=== PATIENT | female | born 1975 | race Caucasian/White ===

== ENCOUNTER 2020-06-29 15:57 | Emergency (ER) | payer OTHER, SELFPAY ==
--- NOTE | ~2020-06-29 | CT_ITS ---
EXAMINATION: CT LE RT wo con DATE: 06/29/2020 17:40 INDICATION: Right ankle injury with joint effusion. TECHNIQUE: High resolution computed tomography (CT) of the right ankle was performed without intraven ous contrast. Additional sagittal and coronal reconstructions were performed. Automated exposure cont rol and iterative reconstruction technique were employed. The dose-length product was 382.14 mGy-cm. COMPARISON: Right ankle radiographs dated 06/29/2020 FINDINGS: Bone alignment is normal. No fracture. Small osteophyte at the fibular side of the anterior inferior tibiofibular ligament likely sequela of old trauma. Also likely sequela of old trauma is tiny focus o f calcification along the deep deltoid ligament. Small enthesopathic ossicle at the distal insertion of the Achilles tendon. Mild osteoarthritis at the first metatarsophalangeal joint. Joint spaces are otherwise normal.. Small bone island at the navicula. Moderate-sized right ankle joint effusion. IMPRESSION: 1. Moderate-sized right ankle joint effusion. No acute osseous abnormality. Reviewed, dictated and finalized at location . TATION INSPECTOR
--- NOTE | ~2020-06-29 | XR_ITS ---
EXAMINATION: XR ankle RT min 3V DATE: 06/29/2020 16:29 INDICATION: Lateral right ankle pain post fall TECHNIQUE: Anteroposterior, oblique, mortise, and lateral views of the right ankle were obtained. COMPARISON: None. FINDINGS: Alignment is normal. No fracture. Joint spaces are well maintained. Large right ankle joint effusion with prominent increased density anterior to the tibiotalar joint. Mild soft tissue swelling about t he lateral malleolus. Small Achilles calcaneal spur. IMPRESSION: 1. Large right ankle joint effusion. No acute osseous abnormality. Reviewed, dictated and finalized at location H. L AND PINION INSPECTOR
[2020-06-29 16:15] VITALS: BP 147/107; PULSE 106; RESP 20; TEMP 36.8; O2SAT 100
--- NOTE | 2020-06-29 17:37 | PC.NURSE ---
patient to CT via wheelchair.
[2020-06-29] MEDS: HYDROcodone/acetaminophen (*CRX) 5-325 MG TABLET 1 TAB PO (17:44)
--- NOTE | 2020-06-29 17:45 | PC.NURSE ---
patient back from CT. pain med given as ordered. apple juice given per patient request. mother in room. patient wants to stay sitting in wheelchair for comfort.
--- NOTE | 2020-06-29 17:52 | ED.LOWEXIN ---
HPI - Extremity Injury (Lower) General Chief Complaint: Extremity Injury, Lower Stated Complaint: right ankle pain, fall last night Time Seen by Provider: 06/29/20 16:18 Source: patient Mode of arrival: wheelchair Limitations: no limitations History of Present Illness HPI Narrative: This is a 45 year old female that presents to the ER for right ankle pain after an injury last night. Reports she was walking up the steps and slipped and rolled the ankle and hit it on the step. Reports since she has had swelling and pain in the ankle. Denies other injuries, decreased ROM or numbness. Related Data Home Medications Medication Instructions Recorded Confirmed atomoxetine PO 06/29/20 hydrochlorothiazide 06/29/20 pantoprazole PO 06/29/20 venlafaxine mg PO 06/29/20 Allergies Allergy/AdvReac Type Severity Reaction Status Date / Time cefuroxime Allergy Unknown Hives Verified 06/29/20 16:42 Penicillins Allergy Unknown Hives Verified 06/29/20 16:42 NSAIDS (Non-Steroidal AdvReac Other Verified 06/29/20 16:42 Anti-Inflamma AMOXICILLIN TRIHYDRATE Allergy Intermediate RASH Uncoded 06/29/20 16:42 POTASSIUM CLAVULANATE Allergy Intermediate RASH Uncoded 06/29/20 16:42 Review of Systems Review of Systems: Narrative: CONSTITUTIONAL: Denies fever MUSCULOSKELETAL: Reports joint pain, and myalgia. NEUROLOGIC: Denies numbness All systems reviewed & are unremarkable except as noted in HPI and below PMFSH Past Medical History Medical History (Updated 06/29/20 @ 18:12 by Jenn Bernard PA-C) History of gastroesophageal reflux (GERD) Family History Family History (Updated 12/01/18 @ 15:06 by DOCTOR UNKNOWN) Mother Hypertension Family history of thyroid disease Diabetes mellitus Family history of elevated blood lipids Father Hypertension Diabetes mellitus Depression Family history of bipolar disorder Family history of liver disease Family history of coronary artery disease Social History Social History Smoking status: Never smoker Alcohol intake: never Exam Narrative: Exam Narrative: GENERAL: Well-appearing, well-nourished, and in no acute distress. HEAD: Normocephalic, atraumatic. EYES: EOMI. EXTREMITIES: Normal range of motion. Moderate edema about the right ankle. Normal DP pulses. Normal sensation SKIN: Warm, dry, no rash. NEURO: No focal deficits. Alert and oriented x3. PSYCH: Normal mood and affect Course Vital Signs Vital signs: Vital Signs Temperature 98.3 F 06/29/20 16:15 Pulse Rate 106 H 06/29/20 16:15 Respiratory Rate 20 06/29/20 16:15 Blood Pressure 147/107 H 06/29/20 16:15 Pulse Oximetry 100 06/29/20 16:15 Temperature 98.3 F 06/29/20 16:15 Pulse Rate 106 H 06/29/20 16:15 Respiratory Rate 20 06/29/20 16:15 Blood Pressure 147/107 H 06/29/20 16:15 Pulse Oximetry 100 06/29/20 16:15 MDM - Extremity Injury (Lower) MDM Narrative Medical decision making narrative: Patient presents to the ER for right ankle pain after an injury yesterday. Right ankle x-ray is without acute findings. Did show a large joint effusion so CT was obtained to r/o occult fracture. CT scan was also without acute osseous abnormalities. Patient placed in Roni wrap and given crutches. She is to follow-up with primary care doctor. She was given warnings to return to the ER Imaging Data Radiologist's impression: ITS Impressions Ankle X-Ray 06/29/20 16:36 IMPRESSION: 1. Large right ankle joint effusion. No acute osseous abnormality. Lower Extremity CT 06/29/20 17:48 IMPRESSION: 1. Moderate-sized right ankle joint effusion. No acute osseous abnormality. Critical Care Time Critical Care Time Critical Care Time: No Discharge Plan Discharge Clinical Impression: Right ankle sprain Qualifiers: Encounter type: initial encounter Involved ligament of ankle: unspecified ligament Qualified Code(s): S93.401A - Sprain of unspecified ligament of right ank
--- NOTE | 2020-06-29 17:55 | PC.NURSE ---
CT results. has effusion but no fracture.
[2020-06-29] MEDS: ONDANSETRON HCL ODT 4 MG TABLET PO (18:30)
[2020-06-29 18:46] VITALS: BP 158/80; PULSE 72; O2SAT 100
== END 2020-06-29 18:48 | disposition home or self-care (01) ==
PROVIDERS: Emergency Provider Emergency Medicine; PCP Internal Medicine
DX: S93.401A Sprain of unspecified ligament of right ankle, initial encounter (principal); K21.9 Gastro-esophageal reflux disease without esophagitis; X50.1XXA Overexertion from prolonged static or awkward postures, initial encounter
CPT/HCPCS: 73610; 73700; 99284; A9270

== ENCOUNTER 2021-09-25 11:38 | Outpatient (CLI) | payer OTHER, SELFPAY ==
--- NOTE | ~2021-09-25 | XR_ITS ---
EXAMINATION: XR elbow RT min 3V DATE: 09/25/2021 12:16 INDICATION: Right elbow injury post fall TECHNIQUE: Anteroposterior, two oblique and lateral views of the right elbow were obtained. COMPARISON: None. FINDINGS: Alignment is normal. No fracture or joint effusion. Joint spaces are normal. Soft tissues are unremar kable. IMPRESSION: 1. Negative right elbow radiographs. Reviewed, dictated and finalized at location A. IGHT TOOTH GEAR GENERATOR OPERATOR
== END 2021-09-25 11:39 | disposition home or self-care (01) ==
LOC: CHSIMG 11:40
PROVIDERS: PCP Internal Medicine; Visit Provider Internal Medicine
DX: S59.901A Unspecified injury of right elbow, initial encounter (principal)
CPT/HCPCS: 73080

== ENCOUNTER 2024-07-17 00:17 | Day surgery (SDC) | payer BC, SELFPAY ==
[2024-07-04 12:22] VITALS: BMI 36.3
[2024-07-17 07:21] VITALS: BP 141/81; PULSE 94; RESP 18; TEMP 35.8; O2SAT 100
[2024-07-17] MEDS: LACTATED RINGERS 1,000 ML 150 ML IV CONT (07:24)
--- NOTE | 2024-07-17 07:55 | WPDANESEPPF ---
Anes - Initial Pre Proc Eval Procedure: Operation Date: 07/17/24 08:00 Proposed Procedures p Screening Colonoscopy - Lm Diop DO Date/Time: 07/17/24 07:55 Surgeon: Lm Diop DO Pre Op Diagnosis: screening for malignant neoplasm of colon Patient Data Age: 49 Gender: F Height: 1.52 m Weight: 82.6 kg Last Vital Signs Temp 35.8 C L 07/17/24 07:21 Pulse 94 07/17/24 07:21 Resp 18 07/17/24 07:21 BP 141/81 H 07/17/24 07:21 Pulse Ox 100 07/17/24 07:21 O2 Del Method Room Air 07/17/24 07:21 Allergies Allergy/AdvReac Type Severity Reaction Status Date / Time amoxicillin (From Augmentin) Allergy Intermediate Rash Verified 07/17/24 07:22 clavulanic acid (From Allergy Intermediate Rash Verified 07/17/24 07:22 Augmentin) cefuroxime Allergy Unknown Hives Verified 07/17/24 07:17 Penicillins Allergy Unknown Hives Verified 07/17/24 07:17 NSAIDS (Non-Steroidal AdvReac Other Verified 07/17/24 07:17 Anti-Inflamma Home Medications ?Medication ?Instructions ?Recorded ?Confirmed ?Type potassium citrate 5 mEq (540 mg) 75 mg PO DAILY 04/23/21 07/17/24 History tablet,extended release losartan 50 mg-hydrochlorothiazide 0.5 tablet PO DAILY 07/04/24 07/17/24 History 12.5 mg tablet pantoprazole 40 mg tablet,delayed 40 mg PO DAILY 07/04/24 07/17/24 History release phentermine 37.5 mg capsule 37.5 mg PO DAILY 07/04/24 07/17/24 History Patient hx anesthesia problems: none Family hx anesthesia problems: none Results Review: All pre-operative results and documents have been reviewed as part of the pre-operative evaluation. [facility] Past Medical History Medical History History of 1989 History of vaginal delivery 04/06/96 Male 6lbs 7oz Kidney disease Hypertension Headache Acid reflux Diabetes Anxiety Seasonal allergies History of gastroesophageal reflux (GERD) Surgical History Surgical History History of cholecystectomy History of tubal ligation History of endometrial ablation History of section 10/12/98 6lb 7.5oz Male Family History Family History Mother Hypertension Family history of thyroid disease Diabetes mellitus Family history of elevated blood lipids Father Hypertension Diabetes mellitus Depression Family history of bipolar disorder Family history of liver disease Family history of coronary artery disease Grandparent Cervical cancer Social History Social History Smoking status: Never smoker Alcohol intake: current Drinks per week: 1 Substance use: never Substance use type: does not use Living arrangements: alone Anes - Eval Final PreProcedure Day of Procedure 07/17/24 07:55 Patient weight: obese Heart: regular rate and rhythm Lungs: clear to auscultation Airway: Mallampati scale class II Neurological: alert and oriented Last oral intake: >/= 8 hours ASA classification: III Emergent: no Anesthetic plan: proceed Anesthesia type and monitoring: general GIVS and standard monitoring Results Review: All pre-operative results and documents have been reviewed as part of the pre-operative evaluation. Informed Consent: The patient's anesthetic plan and its attendant risks and benefits were discussed with the patient/family/POA. Questions were solicited and answers provided to the satisfaction of the patient/family/POA.
--- NOTE | 2024-07-17 08:03 | P.HP_ITS ---
H&P: HPI History of Present Illness Date/Time: 07/17/24 08:03 Chief Complaint: screening for colorectal cancer Narrative: this is a 49-year-old woman who presents for colonoscopy. She has never had a colonoscopy before. She denies any family history of colon cancer. She denies hematochezia or melena Review of Systems Review of Systems: All systems reviewed & are unremarkable except as noted in HPI and below Constitutional: Constitutional: Denies chills, Denies fever(s), Denies headache(s) and Denies weight loss Eyes: Eyes: Denies change in vision ENT: Denies dizziness, Denies headache(s), Denies neck mass and Denies throat swelling Cardiovascular: Cardiovascular: Denies chest pain, Denies lightheadedness and Denies dyspnea Respiratory: Respiratory: Denies cough, Denies dyspnea and Denies wheezing Gastrointestinal: Gastrointestinal: Denies abdominal pain, Denies change in bowel habits, Denies nausea and Denies vomiting Genitourinary: Genitourinary: Denies hematuria and Denies dysuria Musculoskeletal: Musculoskeletal: Reports as per HPI Integumentary/Breasts: Skin/Breast: Reports as per HPI Neurologic: Denies dizziness and Denies headache(s) Allergic/Immunologic: Allergic/Immunologic: Denies throat swelling and Denies wheezing [facility] Past Medical History Medical History History of 1988 History of vaginal delivery 04/06/96 Male 6lbs 7oz Kidney disease Hypertension Headache Acid reflux Diabetes Anxiety Seasonal allergies History of gastroesophageal reflux (GERD) Surgical History Surgical History History of cholecystectomy History of tubal ligation History of endometrial ablation History of section 10/12/98 6lb 7.5oz Male Family History Family History Mother Hypertension Family history of thyroid disease Diabetes mellitus Family history of elevated blood lipids Father Hypertension Diabetes mellitus Depression Family history of bipolar disorder Family history of liver disease Family history of coronary artery disease Grandparent Cervical cancer Social History Social History Smoking status: Never smoker Alcohol intake: current Drinks per week: 1 Substance use: never Substance use type: does not use Living arrangements: alone Meds Home Medications and Allergies Home Medications ?Medication ?Instructions ?Recorded ?Confirmed ?Type potassium citrate 5 mEq (540 mg) 75 mg PO DAILY 04/23/21 07/17/24 History tablet,extended release losartan 50 mg-hydrochlorothiazide 0.5 tablet PO DAILY 07/04/24 07/17/24 History 12.5 mg tablet pantoprazole 40 mg tablet,delayed 40 mg PO DAILY 07/04/24 07/17/24 History release phentermine 37.5 mg capsule 37.5 mg PO DAILY 07/04/24 07/17/24 History Allergies Allergy/AdvReac Type Severity Reaction Status Date / Time amoxicillin (From Augmentin) Allergy Intermediate Rash Verified 07/17/24 07:22 clavulanic acid (From Allergy Intermediate Rash Verified 07/17/24 07:22 Augmentin) cefuroxime Allergy Unknown Hives Verified 07/17/24 07:17 Penicillins Allergy Unknown Hives Verified 07/17/24 07:17 NSAIDS (Non-Steroidal AdvReac Other Verified 07/17/24 07:17 Anti-Inflamma Vital Signs Vital Signs - 24 hr 07/17/24 07:21 Temperature 96.4 F L Pulse Rate 94 Respiratory Rate 18 Blood Pressure 141/81 H Pulse Oximetry 100 Oxygen Delivery Room Air Exam Const: General: no acute distress and alert Orientation/consciousness: patient oriented x3 HENMT: Head: normocephalic and atraumatic Ears: hearing grossly normal bilaterally Face/Nose/Sinus: Normal nares present Mouth: Yes Normal oral and palatal mucosa present Eyes: Periorbital: periorbital findings normal Sclera: sclerae normal EOM: EOMs intact bilaterally Neck: Neck: normal visual inspection, no lymphadenopathy and trachea midline Chest: Chest palpation & inspection: normal inspection of the chest Resp: Effort & Inspection: normal respiratory effort Auscultation: clear to auscultation bilaterally Cardio: Jugular venous distension: no JVD Rate: regular rate Rhythm: regular rhythm Heart sounds: S1 normal heart sound present and S2 normal heart sound present Peripheral pulses: Peripheral pulses 2+ throughout GI: Inspection: normal to inspection GI Palp: Yes Soft to palpation, No Tenderness to palpation present (GI), No Guarding due to palpation present (GI) and No Rebound tenderness present Percussion: Yes normal to percussion Auscultation: normal bowel sounds : General: Yes no CVA tenderness Back/Spine/Pelvis: Back: no CVA tenderness Neuro: General: patient oriented x3, no focal motor deficits and CN's II-XI intact bilaterally Cognition (Neuro): normal cognition Speech: normal speech Motor exam (neuro): 5/5 motor strength present throughout Extrem: General: capillary refill normal and no clubbing, cyanosis or edema Assessment and Plan Assessment and plan (1) Screening for colorectal cancer: Code(s): Z12.11 - Encounter for screening for malignant neoplasm of colon; Z12.12 - Encounter for screening for malignant neoplasm of rectum Status: Acute Assessment and Plan: I have recommended colonoscopy. I have discussed the procedure, risks, benefits, and alternatives. Questions were answered. Patient is agreeable to proceed.
[2024-07-17 08:40] VITALS: BP 116/73; PULSE 79; RESP 19; O2SAT 97
[2024-07-17 08:50] VITALS: BP 139/95; PULSE 74; RESP 16; O2SAT 100
[2024-07-17 09:00] VITALS: BP 139/99; PULSE 76; RESP 20; O2SAT 100
[2024-07-17 09:37] LABS: BEDSIDEPREGUCG Negative (Negative)
== END 2024-07-17 09:09 | disposition home or self-care (01) ==
PROVIDERS: PCP Internal Medicine; Visit Provider Surgery
PROC: 0DJD8ZZ Inspection of Lower Intestinal Tract, Via Natural or Artificial Opening Endoscopic (ICD-10-PCS; CPT 45378; principal; 2024-07-17 08:00)
DX: Z12.11 Encounter for screening for malignant neoplasm of colon (principal); D12.5 Benign neoplasm of sigmoid colon; E11.9 Type 2 diabetes mellitus without complications; K21.9 Gastro-esophageal reflux disease without esophagitis; N28.9 Disorder of kidney and ureter, unspecified; I10 Essential (primary) hypertension; F41.9 Anxiety disorder, unspecified; E66.9 Obesity, unspecified; Z68.35 Body mass index [BMI] 35.0-35.9, adult; Z98.890 Other specified postprocedural states; Z90.49 Acquired absence of other specified parts of digestive tract; Z98.51 Tubal ligation status; Z98.891 History of uterine scar from previous surgery; Z80.49 Family history of malignant neoplasm of other genital organs; Z82.49 Family history of ischemic heart disease and other diseases of the circulatory system
CPT/HCPCS: 45385; 88305; J2003; J2704; J7120

== ENCOUNTER 2025-04-02 13:41 | Outpatient (CLI) | payer BC, SELFPAY ==
--- NOTE | ~2025-04-02 | MM_ITS ---
EXAMINATION: MM screening maxim BI w naun HISTORY: Screening TECHNIQUE: Craniocaudal and mediolateral oblique 3-D tomosynthesis images were obtained and synthetic 2-D images were generated. CAD analysis was submitted and interpreted. COMPARISON: Comparison to multiple prior studies sequentially, with oldest reviewed study dated 06/09/2013. BREAST PARENCHYMAL COMPOSITION: There are scattered areas of fibroglandular density. FINDINGS: There is no evidence of suspicious mass, calcification, or architectural distortion to suggest malignancy in either breast. IMPRESSION: 1. No mammographic evidence of malignancy. 2. Recommend routine screening mammography in one year. BI-RADS Category 1: Negative Reviewed, dictated and finalized at location B.
--- OUTSIDE RECORDS SUMMARY | 2025-04-02 13:47 | XMS_ITS | Clinical Summary ---
Author Organization [facility] Address [address] [place] [address] Care Team Providers Care Drawing Checker Name Role Phone King Piedra MD Primary Care Provider + [phone] Allergies Active Allergy Reactions Criticality Noted Date Comments Penicillin Swelling,Rash Medium 09/12/2024 Medications phentermine 37.5 mg capsule 0 05/06/2018 Active potassium citrate ER (UROCIT-K) 10 mEq (1,080 mg) CR tablet Take 1 tablet by mouth twice daily 60 tablet 02/19/2020 Active losartan-hydroCH LOROthiazide (HYZAAR) 50-12.5 mg per tablet Take 1 tablet by mouth daily 07/18/[address] (PROTONIX) 40 mg EC tablet Take 1 tablet (40 mg total) by mouth daily 09/02/2024 Active Active Problems Problem Noted Date Diagnosed Date High triglycerides 09/12/2024 Overview (09/12/2024): 06/2024- Assessment & Plan (09/12/2024 3:51 PM SECURITIES SUPERVISOR): 08/2023- . Diet and exercise discussed. To follow with pcp for this and her elevated hgbA1c and lft. 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 S/p ckc. Normal since Labs with PCP [place]:2021 Colonoscopy:scheduled 07/2024 BMD: Gardasil:she is not sure Assessment & Plan (06/25/2024 2:48 PM SECURITIES SUPERVISOR): Pap done. RTO 12m. I will send the results to the portal. If she has not heard in a week, to call the office. Menopausal symptoms 06/25/2024 Assessment & Plan (09/12/2024 3:53 PM SECURITIES SUPERVISOR): Labs reviewed To lew pierre. We discussed HRT vs. Other options. Her mom took herbs. She doesn't want hrt We discussed what herbs to take. She took the effexor in the past for anxiety during her divorce. This may be a good option for her in the future if the herbs dont work. Assessment & Plan (06/25/2024 2:50 PM SECURITIES SUPERVISOR): To menopausal labs. 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 Hypertension 11/30/2010 Surgical History Surgery Date Site/Laterality Comments ENDOMETRIAL ABLATION W/ NOVASURE TUBAL LIGATION CHOLECYSTECTOMY SECTION Family History Medical History Relation Name Comments Diabetes Father Family history of diabetes mellitus - (Added by TW Conv) Hypertension Father Family history of hypertension - (Added by TW Conv) Hypertension Mother Family history of hypertension - (Added by TW Conv) Cancer Neg Hx no colon, breas t or home comfort advisor cancer cmt 06/25/24 Relation Name Status Comments Father Mother Social History Tobacco Use Types Packs/Day Years Used Date Smoking Tobacco: Never Smokeless Tobacco: Never Tobacco Cessation:Counseling Given: Not Answered Humiliation, Afraid, Rape, and Kick questionnair e Answer Date Recorded Within the last year, have y ou been afraid of your partner or ex-partner? No 06/25/2024 Within the last year, have y ou been humiliated or emotionally abused in other ways by your partner or ex-partner? No Within the last year, have y ou been kicked, hit, slapped, or otherwise physically hurt by your partner or ex-partner? No 06/25/2024 Within the last year, have y ou been raped or forced to have any kind of sexual activity by your partner or ex-partner? No 06/25/2024 Comments No Sex and Gender Information Value Date Recorded Sex Assigned at Not on file Legal Sex Female 5:01 PM CDT Gender Identity Not on file Sexual Orientation Not on file Obstetrics History Last Filed Vital Signs Vital Sign Reading Time Taken Comments Blood Pressure 108/76 09/12/2024 2:59 PM SECURITIES SUPERVISOR Pulse 101 10/18/2018 9:25 AM CDT Temperature - - Respiratory Rate - - Oxygen Saturation - - Inhaled Oxygen Concentration - - Weight 81.2 kg (179 lb) 09/12/2024 2:59 PM SECURITIES SUPERVISOR Height 152.4 cm (5') 09/12/2024 2:59 PM SECURITIES SUPERVISOR Body Mass Index 34.96 09/12/2024 2:59 PM SECURITIES SUPERVISOR Plan of Treatment Health Maintenance Due Date Last Done Comments Breast Cancer Screening-Mammogram 1973 Colon Cancer Screening-Colonoscopy 1973 Depression Screening 1973 Hepatitis C Screening 1973 Hepatitis B Screening 1991 Covid-19 Vaccine (2 - season) 2024 12/27/2020 Influenza Vaccine (#1) 2025 , 04/01/2021, 06/18/2020, Additional history exists Cervical Cancer Screening 06/25/2025 06/25/2024 Regular Well Visit/Exam 18-64 06/25/2025 06/25/2024 DTaP/Tdap/Td Vaccine (2 - Td or Tdap) 03/04/2027 03/04/2017 Zoster Vaccine Completed 10/12/2023, 05/31/2023 Pneumococcal vaccine <65 Aged Out No longer eligible based on patient's age to complete this topic Procedures Procedure Name Priority Date/Time Associated Diagnosis Comments PAP ONLY Routine 06/25/2024 3:39 PM SECURITIES SUPERVISOR from Last 3 Months or Most Recently Relevant to Health Maintenance Results * (ABNORMAL) Pap only (06/25/2024 3:39 PM SECURITIES SUPERVISOR) CLINICAL INFORMATION: Chelsea De Leon Comment:WELL WOMAN LMP Chelsea De Leon Comment:NONE GIVEN Previous Pap Chelsea De Leon Comment:NONE GIVEN Prev. Bx Chelsea De Leon Comment:NONE GIVEN SOURCE: Chelsea De Leon Comment:Cervix, Endocervix Pap, specimen adequacy Chelsea De Leon Comment: Satisfactory for evaluation. Endocervical/transformation zone component present. Age and/or menstrual status not provided Pap, general categorization (A) Chelsea De Leon Comment:Cytology Results: Ep ithelial Cell Abnormality HPV interp (A) Chelsea De Leon Comment: Atypical Squamous Cells of Undetermined Significance (ASC-US) COMMENTS Chelsea De Leon Comment: This Pap test has been evaluated with computer assisted technology. Suggest clinical correlation and follow-up as clinically appropriate Steam Fitter Helper Que st Bernardo De Leon Comment: PCM, CT(ASCP) CT Screening Location: [place] [address] [place] [address] Pathologist Chelsea De Leon Comment: Torin Terrell M.D., Board Certified in Anatomic Pathology and Cytopathology. (electronic signature) Comment Chelsea De Leon Comment: EXPLANATORY NOTE: The Pap is a screening test for cervical cancer. It is not a diagnostic test and is subject to false negative and false positive results. It is most reliable when a satisfactory sample, regularly obtained, is submitted with relevant clinical findings and history, and when the Pap result is evaluated along with historic and current clinical information. 06/25/2024 3:39 PM SECURITIES SUPERVISOR 06/26/2024 4:27 AM SECURITIES SUPERVISOR Narrative [facility] - 07/03/2024 8:56 AM SECURITIES SUPERVISOR FASTING: UNKNOWN us Stephanie Ramos MD LAB CYTOLOGY ORDERA BLES Final Result [facility] [address] [place] [address] from Last 3 Months or Most Recently Relevant to Health Maintenance Insurance [facility] CHOICE [facility] HMO/PPO Address: [address] [address] [place] [address] ANTH ACCESS CHOICE Care Teams Drawing Checker Relationship Specialty Start Date End Date King Piedra MD [address] [place] [address] [facility] - General 01/10/17
--- OUTSIDE RECORDS SUMMARY | 2025-04-02 13:47 | XMS_ITS | Encounter Summary ---
Author Organization [facility] Address [address] [place] [address] Phone Care Team Providers Care Care Management Coordinator Name Role Phone King Piedra MD Primary Care Provider [phone] Encounter Details Date Type Department Care Team (Latest Contact Info) Description 10/14/2017 Orders Only [facility] Scanning, Provider Social History Tobacco Use Types Packs/Day Years Used Date Smoking Tobacco: Never Comments Unknown Sex and Gender Information Value Date Recorded Sex Assigned at Not on file Legal Sex Female 5:01 PM CDT Gender Identity Not on file Sexual Orientation Not on file documented as of this encounter Plan of Treatment Not on file documented as of this encounter Procedures Procedure Name Priority Date/Time Associated Diagnosis Comments SCAN - LABS 10/14/2017 documented in this encounter Results * SCAN - LABS (10/14/2017) us Provider Scanning Final Result documented in this encounter Visit Diagnoses Not on filedocumented in this encounter Care Teams Care Management Coordinator Relationship Specialty Start Date End Date King Piedra MD [address] [place] [address] PCP - General 01/10/17 documented as of this encounter
== END 2025-04-02 13:42 | disposition home or self-care (01) ==
LOC: CHSIMG 13:43
PROVIDERS: PCP Internal Medicine; Visit Provider Internal Medicine
DX: Z12.31 Encounter for screening mammogram for malignant neoplasm of breast (principal)
CPT/HCPCS: 77063; 77067